=== PATIENT | male | born 1965 | race Caucasian/White ===

== ENCOUNTER 2020-10-29 08:58 | Outpatient (NON) | payer BC, SELFPAY ==
[2020-10-29 14:52] LABS: Influenza Control Positive
[2020-10-29 21:41] LABS: SARS-CoV-2 RNA PCR Negative
== END 2020-10-29 08:59 ==
LOC: ANHCOVIDDT 08:59
PROVIDERS: PCP Family Medicine; Visit Provider Nurse Practitioner Family
DX: J06.9 Acute upper respiratory infection, unspecified (principal); R68.89 Other general symptoms and signs; Z20.822 Contact with and (suspected) exposure to COVID-19
CPT/HCPCS: 87804; C9803; U0003; U0005

== ENCOUNTER 2021-11-11 14:55 | Outpatient (CLI) | payer BC, SELFPAY ==
--- NOTE | ~2021-11-11 | US_ITS ---
US scrotum doppler DATE: 11/11/2021 15:18 INDICATION: Right scrotal pain and swelling for 3 weeks. No known injury. TECHNIQUE: Real-time and color flow imaging and Doppler analysis COMPARISON: November 16, 2011 scrotal ultrasound FINDINGS: Right testicle measures 3.8 x 3.0 x 3.1 cm. Left testicle measures 4.1 x 2.8 x 2.7 cm. No testicular mass lesion or torsion is evident. 4 x 5 mm cyst of the head of the left epididymis. Bilateral hydroceles, right greater than left.. Bilateral varicoceles. IMPRESSION: No testicular mass lesion or torsion Bilateral hydroceles, right greater than left Bilateral varicoceles Reviewed, dictated and finalized at [facility]. Reviewed, dictated and finalized at [facility]. D SOFTWARE ENGINEER
== END 2021-11-11 14:56 ==
LOC: MICIMG 14:55
PROVIDERS: Visit Provider Physician Assistant Medical
DX: N50.89 Other specified disorders of the male genital organs (principal); I86.1 Scrotal varices; N43.3 Hydrocele, unspecified
CPT/HCPCS: 76870; 93976

== ENCOUNTER 2023-02-10 10:57 | Emergency (ER) | payer BC, SELFPAY ==
--- NOTE | ~2023-02-10 | CT_ITS ---
CT scan of the Abdomen and Pelvis Clinical indication: Left flank pain Technique: 2.5 mm axial scans were obtained through the abdomen and pelvis following intravenous dem onstration of 100 cc of Omnipaque 350 contrast material. Dose reduction technique was used on this sc an by utilizing automated exposure control and iterative reconstruction technique. The dose-length pr oduct (DLP) was 527.80 mGy-cm. Findings: Images through the lung bases reveal small hiatal hernia. There is no evidence of renal or ureteral calculi. The kidneys and the ureters are nondilated. There is a 1 cm indeterminate hypodense hepatic structure (axial image 33). The spleen, pancreas, gal lbladder, and adrenals appear normal. There is no aortic aneurysm. There is no evidence of bowel obstruction. Images through the pelvis were performed. There is no evidence of ascites or lymphadenopathy. Urinary bladder unremarkable. Prostate gland and seminal vesicles are unremarkable. Bilateral L5 pars intera rticularis defects are present. Impression: 1 cm indeterminate hypodense hepatic structure. This is statistically most likely a small cyst or hem angioma. Consider follow-up MR as indicated to further assess. Bilateral L5 pars interarticularis defects. Reviewed, dictated and finalized at [facility]. Impression: 1 cm indeterminate hypodense hepatic structure. This is statistically most like ly a small cyst or hemangioma. Consider follow-up MR as indicated to further as sess. Bilateral L5 pars interarticularis defects.
[2023-02-10 11:29] VITALS: BP 143/98; PULSE 53; RESP 17; TEMP 36.7; O2SAT 98
[2023-02-10 12:36] LABS: Basophils Absolute Auto 0.1 K/mm3 (0.0-0.1); Basophils Percent Auto 0.9 % (0.2-1.2); Eosinophils Absolute Auto 0.2 K/mm3 (0-0.3); Hematocrit 41.5 % (42.0-52.0); Hemoglobin 14.4 g/dL (14.0-18.0); Immature Granulocyte Absolute 0.01 K/mm3 (0.00-0.031); Immature Granulocyte Percent A 0.2 % (0-0.5); Lymphocytes Absolute Auto 1.92 K/mm3 (0.9-3.2); Lymphocytes Percent Auto 34.3 % (18.3-44.2); Mean Corpuscular HGB Conc 34.7 g/dl (32-36); Mean Corpuscular Hemoglobin 29.3 pg (26-34); Mean Corpuscular Volume 84.3 fl (80-100); Mean Platelet Volume 10.1 fl (7.4-10.4); Monocytes Absolute Auto 0.4 K/mm3 (0.1-0.6); Monocytes Percent Auto 7.9 % (2.6-8.5); Neutrophils Percent Auto 53.7 % (45.5-73.1); Platelet Count Result 200 k/mm3 (150-375); Red Blood Count 4.92 M/mm3 (4.6-6.20); Red Cell Distribution Width 12.5 % (11.5-14.5); White Blood Count 5.6 K/mm3 (4.5-10.0)
[2023-02-10 12:45] LABS: Alanine Aminotransferase 32 U/L (6-50); Albumin Level 4.6 g/dL (3.5-5.1); Alkaline Phosphatase 55 U/L (38-126); Anion Gap 9 mmol/L (8-16); Aspartate Amino Transferase 32 U/L (17-59); Bilirubin,Total 0.6 mg/dL (0.2-1.3); Blood Urea Nitrogen 16 mg/dL (9-20); Calcium 8.8 mg/dL (8.4-10.2); Carbon Dioxide 25 mmol/L (22-30); Chloride 104 mmol/L (98-107); Estimated CRCL calculation 63 ml/min; Estimated Glomerular Filt Rate > 60; Glucose 103 mg/dL (65-110); Potassium 4.4 mmol/L (3.4-5.0); Sodium 138 mmol/L (137-145)
[2023-02-10 12:53] LABS: Appearance Urine Clear (Clear); Bacteria Urine None Seen /hpf; Bilirubin Urine Negative (Negative); Blood Urine Negative (Negative); Color Urine Yellow (Yellow); Glucose Urine UA Negative (Negative); Ketones Urine Negative (Negative); Leukocyte Esterase Ur Trace LEU/UL (Negative); Nitrate Urine Negative (Negative); Non Pathogenic Casts 0-2; Protein Urine Negative (Negative); RBC Urine 0-2 /hpf (0-2); Specific Grav Ur 1.019 (1.001-1.035); Squamous Epithelial Cell Urine None seen /hpf (Few); pH Urine 6.5 (5.0-9.0)
[2023-02-10 12:56] LABS: Add Urine Microscopic? YES
[2023-02-10] MEDS: HYDROmorphone HCL INJ (*CRX) 1 MG/ML SYR 0.5 MG IV PUSH (13:09)
[2023-02-10] MEDS: ONDANSETRON INJ 4 MG/2 ML VIAL IV PUSH (13:09)
--- NOTE | 2023-02-10 14:29 | ED.GENADULT ---
HPI - General Adult General Chief complaint: Back Pain/Injury Stated complaint: left flank pain Time Seen by Provider: 02/10/23 12:08 Source: patient, RN notes reviewed and old records reviewed Mode of arrival: ambulatory Limitations: no limitations History of Present Illness HPI narrative: This is a 57 year old male who presents for evaluation of left flank pain. Patient reports he has been having focal sharp pain to his left flank for 2 weeks. He states this pain is nonradiating. It is worse depending on his movements. He also notices that his pain is worse with laying on his right side. He has not been taking any medication or treatment for his pain. He was evaluated at [facility] yesterday. He reports he had labs and CT without contrast. They did not finding anything to cause his pain. He states his PCP believes he needs CT with contrast so he came to ER. He deies nausea, vomiting, fever, chills, dysuria or hematuria. Pain is 03/11 Related Data Home Medications Medication Instructions Recorded Confirmed aspirin 81 mg tablet,delayed 81 mg PO DAILY 12/09/19 11/08/22 release Allergies Allergy/AdvReac Type Severity Reaction Status Date / Time propofol Allergy Unknown HYPOTENSION/SOB/CHEST Verified 11/08/22 15:47 HEAVINESS Review of Systems Constitutional: Constitutional: Denies weakness Cardiovascular: Cardiovascular: Denies syncope, Denies rapid heart rate, Denies irregular heart rhythm, Denies leg edema and Denies dyspnea Respiratory: Respiratory: Denies chest congestion, Denies hemoptysis, Denies excessive phlegm production and Denies dyspnea Gastrointestinal: Gastrointestinal: Denies abdominal pain, Denies hematochezia, Denies diarrhea and Denies vomiting Genitourinary: Genitourinary: Denies hematuria, Denies dysuria, Denies penile discharge and Denies testicular pain Musculoskeletal: Musculoskeletal: Denies joint swelling, Denies loss of height and Denies muscle weakness Neurologic: Denies syncope, Denies focal weakness and Denies weakness PMFSH Past Medical History Medical History Abnormal finding on EKG Acute bronchitis due to other specified organisms Anxiety Arthritis of carpometacarpal (CMC) joint of left thumb BMI 26.0-26.9,adult BMI 29.0-29.9,adult BMI 30.0-30.9,adult Depression Dietary counseling and surveillance (07/04/19) Elevated blood pressure reading Encounter for other specified surgical aftercare Encounter for screening colonoscopy Encounter for screening for malignant neoplasm of prostate Essential hypertension Hand arthritis High cholesterol High triglycerides Incisional hernia without obstruction or gangrene Male erectile dysfunction, unspecified Other symptoms and signs involving emotional state Pain in joints of right hand Screening for thyroid disorder Surgical History Surgical History History of carpal tunnel release of both wrists History of hernia repair History of Bernice fundoplication History of rhinoplasty History of shoulder surgery Status post trigger finger release Family History Family History Mother Hypertension Diabetes mellitus Breast cancer H/O mastectomy Sibling Hypertension Family history of diabetes mellitus in first degree relative Diabetes mellitus Father , pancreatitis No problems noted. 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
== END 2023-02-10 15:25 | disposition home or self-care (01) ==
PROVIDERS: Emergency Provider General Practice; PCP Family Medicine
DX: R10.9 Unspecified abdominal pain (principal); I10 Essential (primary) hypertension; E78.2 Mixed hyperlipidemia; M19.049 Primary osteoarthritis, unspecified hand; Z87.891 Personal history of nicotine dependence; Z79.82 Long term (current) use of aspirin; R93.2 Abnormal findings on diagnostic imaging of liver and biliary tract
CPT/HCPCS: 36415; 74177; 80053; 81001; 85025; 87086; 96374; 96375; 99284; J1170; J2405; Q9967

== ENCOUNTER → 2023-05-29 15:13 | Outpatient (CLI) | payer BC, SELFPAY ==
--- NOTE | ~2023-05-29 | US_ITS ---
EXAMINATION: US soft tissue head and neck DATE: 05/29/2023 15:31 INDICATION: Right neck swelling. TECHNIQUE: Multiple grayscale and Doppler ultrasound images of the right neck were obtained. COMPARISON: Chest CT 02/05/2017 FINDINGS: There is no abnormal mass or lymphadenopathy in the patient's area of concern in right clav icular region. IMPRESSION: 1. No abnormal mass or lymphadenopathy in the patient's area of concern in right clavicular region. Reviewed, dictated and finalized at [facility]. IMPRESSION: 1. No abnormal mass or lymphadenopathy in the patient's area of concern in righ t clavicular region.
== END ==
PROVIDERS: PCP Family Medicine; Visit Provider Nurse Practitioner Family
DX: R22.1 Localized swelling, mass and lump, neck (principal)
CPT/HCPCS: 76536

== ENCOUNTER 2023-06-14 08:59 | Outpatient (CLI) | payer BC, SELFPAY ==
--- NOTE | ~2023-06-14 | CT_ITS ---
EXAMINATION: CT soft tissue neck chest wo/w DATE: 06/14/2023 09:29 INDICATION: Localized swelling, mass and lump, neck. TECHNIQUE: Computed tomography (CT) of the neck and chest was performed without intravenous contrast. Automated exposure control and iterative reconstruction technique were employed. The dose-length pro duct was 1873.80 mGy-cm. COMPARISON: chest CT 02/05/17 FINDINGS: CT NECK: There is a 15 mm nodule in right thyroid lobe, stable from 02/05/17, likely benign. There are no pathologically enlarged lymph nodes. There is a skin marker overlying the right sternoclavicular j oint. There is mild osteoarthritis of the sternoclavicular joints. There is severe cervical spondylos is. CT CHEST: There is mild atelectasis in right lower lobe. No pleural effusion. There is a moderate-siz ed sliding hiatal hernia. There is thoracic dextroscoliosis and severe spondylosis. There is mild chr onic anterior wedging of multiple vertebral bodies. IMPRESSION: 1. Chronic thyroid nodule, likely benign. 2. Moderate sized sliding hiatal hernia. Reviewed, dictated and finalized at [facility].
[2023-06-14 09:22] LABS: Estimated Glomerular Filt Rate > 60
== END 2023-06-14 09:00 | disposition home or self-care (01) ==
PROVIDERS: PCP Family Medicine; Visit Provider Nurse Practitioner Family
DX: R22.1 Localized swelling, mass and lump, neck (principal); K44.9 Diaphragmatic hernia without obstruction or gangrene; E04.1 Nontoxic single thyroid nodule
CPT/HCPCS: 70492; 71270; Q9967

== ENCOUNTER 2023-07-14 01:47 | Day surgery (SDC) | payer BC, SELFPAY ==
[2023-07-03 14:17] VITALS: BMI 29.4
[2023-07-14 06:59] VITALS: BP 158/105; PULSE 51; RESP 20; TEMP 35.8; O2SAT 98; BMI 28.6
[2023-07-14] MEDS: LACTATED RINGERS 1,000 ML 150 ML IV CONT (07:10)
[2023-07-14 07:18] VITALS: BP 149/81; PULSE 48
--- NOTE | 2023-07-14 07:29 | WPDANESEPPF ---
Anes - Initial Pre Proc Eval Procedure: Operation Date: 07/14/23 08:00 Proposed Procedures p Esophagogastroduodenoscopy & Colonoscopy - Roger Buitrago MD Date/Time: 07/14/23 07:29 Surgeon: Roger Buitrago MD Pre Op Diagnosis: hx colon polyps,GERD,diaphragmatic hernia Patient Data Age: 58 Gender: M Height: 1.68 m Weight: 80.6 kg Last Vital Signs Temp 96.5 F L 07/14/23 06:59 Pulse 48 L 07/14/23 07:18 Resp 20 07/14/23 06:59 BP 149/81 H 07/14/23 07:18 Pulse Ox 98 07/14/23 06:59 O2 Del Method Room Air 07/14/23 06:59 Allergies Allergy/AdvReac Type Severity Reaction Status Date / Time No Known Allergies Allergy Verified 07/14/23 06:58 Home Medications Medication Instructions Recorded Confirmed Type aspirin 81 mg tablet,delayed 81 mg PO DAILY 12/09/19 07/03/23 History release tadalafil 10 mg tablet (Cialis) 10 mg PO DAILY PRN sexual activity 03/23/23 07/03/23 Rx #9 tabs rosuvastatin 20 mg tablet (Crestor) 20 mg PO DAILY #90 tabs 03/24/23 07/03/23 Rx bupropion HCl 150 mg tablet,12 hr See Rx Instructions .Route 06/16/23 07/03/23 Rx sustained-release .COMPLEX #270 tabs ibuprofen 600 mg tablet 600 mg PO TID PRN pain #90 tabs 06/16/23 07/03/23 Rx pantoprazole 40 mg tablet,delayed 40 mg PO QAM #30 tabs 06/26/23 07/03/23 Rx release alprazolam 0.25 mg tablet (Xanax) 0.25 mg PO TID PRN Anxiety 07/03/23 07/03/23 History losartan 50 mg tablet 50 mg PO DAILY 07/03/23 07/03/23 History Patient hx anesthesia problems: none Family hx anesthesia problems: none Results Review: All pre-operative results and documents have been reviewed as part of the pre-operative evaluation. [facility] Past Medical History Medical History (Updated 06/26/23 @ 11:11 by Gabbie Marquis) Abnormal finding on EKG Acute bronchitis due to other specified organisms Anxiety Arthritis of carpometacarpal (CMC) joint of left thumb BMI 26.0-26.9,adult BMI 29.0-29.9,adult BMI 30.0-30.9,adult Depression Dietary counseling and surveillance (07/04/19) Elevated blood pressure reading Encounter for other specified surgical aftercare Encounter for screening colonoscopy Encounter for screening for malignant neoplasm of prostate Essential hypertension GERD (gastroesophageal reflux disease) Hand arthritis High cholesterol High triglycerides Hypertension Incisional hernia without obstruction or gangrene Male erectile dysfunction, unspecified Other symptoms and signs involving emotional state Pain in joints of right hand Screening for thyroid disorder Surgical History Surgical History History of carpal tunnel release of both wrists History of hernia repair History of Bernice fundoplication History of rhinoplasty History of shoulder surgery Status post trigger finger release Family History Family History Mother Hypertension Diabetes mellitus Breast cancer H/O mastectomy Sibling Hypertension Family history of diabetes mellitus in first degree relative Diabetes mellitus Father , pancreatitis No problems noted. 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
--- NOTE | 2023-07-14 07:57 | PM.HPGS ---
History of Present Illness History of Present Illness Consent: Risks, benefits, and alternatives have been discussed and questions answered. Patient agrees to proceed with procedure. Chief complaint: hx colon polyps,GERD,diaphragmatic hernia Narrative: Mohit Sands is a 58 year old male with colon polyp 5 years ago, also GERD on protonix, had bernice years ago but recent imaging showed hiatal hernia. Review of Systems Constitutional: Constitutional: Denies headache(s) and Denies weakness Eyes: Eyes: Denies blurry vision ENT: Reports Normal hearing present, Denies headache(s) and Denies neck pain Cardiovascular: Cardiovascular: Denies chest pain and Denies dyspnea Respiratory: Respiratory: Denies dyspnea Gastrointestinal: Gastrointestinal: Reports no additional gastrointestinal complaints Genitourinary: Genitourinary: Denies dysuria Musculoskeletal: Musculoskeletal: Denies neck pain Integumentary/Breasts: Skin/Breast: Denies dry skin Neurologic: Reports Normal hearing present, Denies headache(s) and Denies weakness Psychiatric: Psychiatric: Denies anxiety Endocrine: Endocrine: Denies change in body appearance Hematologic/Lymphatic: Hematologic/Lymphatic: Denies easy bleeding Allergic/Immunologic: Allergic/Immunologic: Denies urticaria PMFSH Past Medical History Medical History (Updated 07/14/23 @ 07:58 by Roger Buitrago MD) Abnormal finding on EKG Acute bronchitis due to other specified organisms Anxiety Arthritis of carpometacarpal (CMC) joint of left thumb BMI 26.0-26.9,adult BMI 29.0-29.9,adult BMI 30.0-30.9,adult Colon polyp Depression Dietary counseling and surveillance (07/04/19) Elevated blood pressure reading Encounter for other specified surgical aftercare Encounter for screening colonoscopy Encounter for screening for malignant neoplasm of prostate Essential hypertension GERD (gastroesophageal reflux disease) Hand arthritis High cholesterol High triglycerides Hypertension Incisional hernia without obstruction or gangrene Male erectile dysfunction, unspecified Other symptoms and signs involving emotional state Pain in joints of right hand Screening for thyroid disorder Surgical History Surgical History History of carpal tunnel release of both wrists History of hernia repair History of Bernice fundoplication History of rhinoplasty History of shoulder surgery Status post trigger finger release Family History Family History Mother Hypertension Diabetes mellitus Breast cancer H/O mastectomy Sibling Hypertension Family history of diabetes mellitus in first degree relative Diabetes mellitus Father , pancreatitis No problems noted. 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
--- NOTE | 2023-07-14 08:25 | SUR.OPER ---
EGD END TIME: 816 COLON START TIME: 821
[2023-07-14 08:37] VITALS: BP 113/63; PULSE 62; O2SAT 99
[2023-07-14 08:47] VITALS: BP 138/87; PULSE 66; RESP 22; O2SAT 99
[2023-07-14 08:57] VITALS: BP 138/94; PULSE 68; RESP 21; O2SAT 98
== END 2023-07-14 09:01 | disposition home or self-care (01) ==
PROVIDERS: PCP Family Medicine; Visit Provider Internal Medicine Gastroenterology
PROC: 0DJ08ZZ Inspection of Upper Intestinal Tract, Via Natural or Artificial Opening Endoscopic (ICD-10-PCS; CPT 43235; principal; 2023-07-14 08:00)
DX: Z12.11 Encounter for screening for malignant neoplasm of colon (principal); K57.30 Diverticulosis of large intestine without perforation or abscess without bleeding; K64.8 Other hemorrhoids; Z86.010 Personal history of colon polyps; K44.9 Diaphragmatic hernia without obstruction or gangrene; K29.50 Unspecified chronic gastritis without bleeding; K21.00 Gastro-esophageal reflux disease with esophagitis, without bleeding; I10 Essential (primary) hypertension; E78.00 Pure hypercholesterolemia, unspecified; E78.1 Pure hyperglyceridemia; F41.9 Anxiety disorder, unspecified; F32.A Depression, unspecified; Z87.891 Personal history of nicotine dependence; Z79.82 Long term (current) use of aspirin
CPT/HCPCS: 45378; 43239; 88305; J0461; J2704; J7120